=== PATIENT | male | born 1955 | race Caucasian/White ===

== ENCOUNTER → 2019-03-02 17:45 | Outpatient (CLI) | payer OTHER, SELFPAY ==
[2019-03-02 18:36] LABS: ALB/GLOB Ratio 1.3 RATIO (0.9-2.4); AST(SGOT) 36 U/L (15-37); Alanine Aminotransfer ALT/SGPT 44 U/L (16-61); Albumin, Serum 4.2 g/dL (3.2-5.0); Alkaline Phosphatase 91 U/L (45-117); Anion Gap 3 (5-15); BUN 19 mg/dL (7-18); BUN/Creat Ratio 18.8 RATIO (10-20); Calcium,Total 8.9 mg/dL (8.5-10.1); Chloride 107 mmol/L (98-107); Cholesterol 147 mg/dL (200); Creatinine, Serum 1.01 mg/dL (0.70-1.30); EST Glomerular Filtration Rate 79 mL/min (>60); Est Glom Filt Rate - Afr Amer 96 mL/min (>60); Globulin 3.3 g/dL (2.2-4.2); Glucose 99 mg/dL (74-106); High Density Lipoprotein 31 mg/dL; PSA,Total - Annual Screen 2.57 ng/mL (0.00-4.00); Potassium 4.1 mmol/L (3.5-5.1); Protein, Total 7.5 g/dL (6.4-8.2); Sodium Level 140 mmol/L (136-145); Thyroid Stim Hormone (TSH) 3.54 uIU/mL (0.358-3.74); Triglycerides 139 mg/dL; Very Low Density Lipoprotein 28 mg/dL (5-40)
== END ==
PROVIDERS: Family Provider Family Medicine; PCP Family Medicine; Referring Provider Family Medicine; Visit Provider Family Medicine
DX: Z00.00 Encounter for general adult medical examination without abnormal findings (principal); Z12.5 Encounter for screening for malignant neoplasm of prostate
CPT/HCPCS: 36415; 80053; 80061; 84153; 84443; G0103

== ENCOUNTER → 2020-08-30 07:53 | Outpatient (CLI) | payer OTHER, SELFPAY ==
--- NOTE | 2020-08-30 07:55 | CT_ITS ---
STUDY: CT CHEST WITH CONTRAST REASON FOR EXAM: Male, 65 years old. Solitary pulmonary nodule RADIATION DOSAGE (If Supplied By Facility): CTDIvol = ( 12.84 ) mGy, DLP = ( 358.87 ) mGycm TECHNIQUE: Transaxial imaging was performed following intravenous administration of IV 100mL Isovue-300. Multiplanar coronal and sagittal images were reformatted. Individualized dose optimization techniques were used for this CT. COMPARISON: None. FINDINGS: Chronic interstitial changes in both lung nolasco with nonspecific pleural thickening in both hemithoraces. There is no organized infiltrate or groundglass opacification. There is a noncalcified 1 cm nodule in the right lower lobe on axial image 92. Soft tissue windows show normal-appearing thyroid gland. Scattered subcentimeter axillary, mediastinal, and perihilar lymph nodes. No pleural or pericardial effusions. Normal heart and pericardium. Normal mediastinum. Normal hilar regions. Normal enhanced pulmonary arteries. Normal aorta arch and descending thoracic aorta. There are multi-level degenerative changes of the thoracic spine. Limited cuts through the upper abdomen show a prominent retrocardiac hiatal hernia, simple hepatic cysts and a right renal cyst. CT/Chest WITH Contrast IMPRESSION: There is a noncalcified well-defined smooth bordered 1 cm nodule in the right lower lobe on axial image 92. Since there are no previous studies available for comparison, options for follow-up are as follows: Pet/CT to determine if metabolic activity is present, this would be recommended if patient has a smoking history or other factors to suspect neoplasm. 6 month follow-up for a period of 2 years to assess stability, or if there is a high degree of suspicion, this could be biopsied. Chronic interstitial changes in both lung nolasco without a superimposed process No suspicious adenopathy Retrocardiac hiatal hernia Hepatic and right renal cysts, no specific follow-up needed Electronically Signed: Len Pedersen MD at 9:34 EDT , Service support ,
[2020-08-30 08:26] LABS: CREATININE FINGERSTICK 1.1 mg/dL (0.70-1.30); EGFR FINGERSTICK > 60.0000 mL/min (>60)
== END ==
PROVIDERS: PCP Family Medicine; Referring Provider Family Medicine; Visit Provider Family Medicine
DX: R91.1 Solitary pulmonary nodule (principal)
CPT/HCPCS: 71260; Q9967

== ENCOUNTER → 2020-10-02 07:16 | Outpatient (CLI) | payer OTHER, SELFPAY ==
[2020-09-01 08:19] VITALS: BMI 26.4
--- NOTE | 2020-10-02 07:18 | ECHOD_ITS ---
Reason For Study: CAD/ASHD Procedure This was a 2D Doppler, Color Flow transthoracic echocardiogram. Exam performed in department. Left Ventricle Normal LV size. Left ventricular systolic function is normal. The estimated ejection fraction is 55 %. Stage 1 diastolic dysfunction. No regional wall motion abnormalities noted. Right Ventricle Normal RV size. Normal systolic function. Atria Normal left atrium. Normal right atrium. Mitral Valve Normal mitral valve. Tricuspid Valve Normal tricuspid valve. Mild (1+) tricuspid valve insufficiency. Pulmonary artery systolic pressure is 31 mmHg. Aortic Valve Normal aortic valve. Pulmonic Valve Normal pulmonic valve. Great Vessels Normal aortic root. The pulmonary artery is normal size. Normal inferior vena cava. Pericardium/Pleural No pericardial effusion. MMode/2D Measurements & Calculations LVIDd: 5.1 cm IVSd: 0.97 cm Ao root diam: 3.5 cm LVIDs: 3.2 cm LVPWd: 0.97 cm LA dimension: 3.7 cm RVDd: 4.3 cm FS: 36.3 % LAV(MOD-bp): 41.6 ml LVAd ap4: 31.4 cm2 SV(MOD-sp4): 59.1 ml LAV(MOD-bp) Indexed: 22.3 ml/m2 LVLd ap4: 7.6 cm LAV(MOD-sp2): 41.6 ml EDV(MOD-sp4): 108.3 ml LAV(MOD-sp4): 40.3 ml EDV(sp4-el): 110.6 ml LVAs ap4: 19.7 cm2 LVLs ap4: 6.7 cm ESV(MOD-sp4): 49.1 ml ESV(sp4-el): 49.5 ml EF(MOD-sp4): 54.6 % EF(sp4-el): 55.2 % SV(sp4-el): 61.1 ml LA A4 area: 16.5 cm2 RA A4 area: 19.1 cm2 Time Measurements MV dec time: 0.28 sec Doppler Measurements & Calculations MV E max víctor: 59.6 cm/sec Lat Peak E' Víctor: 8.5 cm/sec Med Peak E' Víctor: 7.7 cm/sec MV A max víctor: 75.9 cm/sec E/E' lat: 7.0 E/E' med: 7.8 MV E/A: 0.79 MV V2 max: 74.0 cm/sec MV P1/2t max víctor: 58.5 cm/sec Ao V2 max: 104.1 cm/sec MV max P.2 mmHg MV P1/2t: 92.8 msec Ao max P.3 mmHg MV V2 mean: 32.4 cm/sec MV mean P.52 mmHg MV dec slope: 184.6 cm/sec2 MV V2 VTI: 26.8 cm MVA(P1/2t): 2.4 cm2 LV V1 max: 95.5 cm/sec PA V2 max: 93.4 cm/sec TR max víctor: 259.8 cm/sec LV V1 max P.6 mmHg TR max P.0 mmHg ECHO/Echo Complete Interpretation Summary Normal LV size. Left ventricular systolic function is normal. The estimated ejection fraction is 55 %. Pulmonary artery systolic pressure is 31 mmHg. Stage 1 diastolic dysfunction. Ordering Physician: Jason Fernandes Referring Physician: Aiden Rojas Performed By: Lucas Martell RCS
--- NOTE | 2020-10-02 14:04 | STRESSREP ---
Stress Test Report X study stress myocardial perfusion test. 65-year-old man with a history of elevated calcium score. Stress protocol: Resting EKG demonstrates sinus bradycardia with a rate of 50 bpm right bundle branch block is noted resting blood pressure is 128/78 mmHg. The patient exercised according to regular Naldo protocol for total duration of 9 minutes and 16 seconds. The maximum heart rate attained was 137 bpm which was 88% of maximum predicted heart rate the maximum workload was 10.5 metabolic equivalents. At rest there were no ST or T wave changes noted to suggest ischemia and at peak exercise upsloping ST changes were noted with did not meet the criteria for ischemia. No clinical angina was noted. The peak blood pressure was 158/70 mmHg. The test was terminated due to target heart rate being achieved. No chest pain was noted. Myocardial perfusion protocol. 10.8 mCi of technetium 99m sestamibi was injected at rest. The patient exercised according to regular Naldo protocol for 9 minutes and at peak exercise 31.5 mCi of technetium 99m sestamibi was injected stress images were obtained stress and rest images were reconstructed and compared in the short axis vertical long horizontal long axis. Gated images were also obtained. Perfusion SPECT analysis: Review of the stress images demonstrate normal uptake of tracer noted in all areas of the myocardium. The resting images similarly demonstrate normal uptake of tracer noted in all areas of the myocardium. No areas of reversibility are noted to suggest ischemia. Gated SPECT analysis: The gated ejection fraction is 52%. Conclusion: Normal exercise myocardial perfusion stress test at a high workload. No clinical angina noted. Preserved ejection fraction.
== END ==
PROVIDERS: PCP Family Medicine; Referring Provider Internal Medicine Cardiovascular Disease; Visit Provider Internal Medicine Cardiovascular Disease
DX: I25.10 Atherosclerotic heart disease of native coronary artery without angina pectoris (principal); E78.5 Hyperlipidemia, unspecified; R93.1 Abnormal findings on diagnostic imaging of heart and coronary circulation
CPT/HCPCS: 78452; 93017; 93306; A9500; A4216

== ENCOUNTER → 2020-10-03 14:29 | Outpatient (CLI) | payer OTHER, SELFPAY ==
[2020-09-01 08:19] VITALS: BMI 26.4
--- NOTE | 2020-10-03 15:00 | PET_ITS ---
EXAMINATION: FDG PET/CT INDICATIONS: A 65-year-old male with history of pulmonary nodularity. COMPARISON EXAMINATION: CT of the chest report dated 08/30/20 TECHNIQUE: Following the intravenous administration of 16.54 mCi of F-18 deoxyglucose via the right wrist, multiplanar image acquisitions of the neck, chest, abdomen and pelvis to level of mid thigh, obtained at one hour post radiopharmaceutical administration contemporaneously interpreted with the current CT of the neck, chest, abdomen and pelvis to level of mid thigh, dated 10/03/[address] of the chest report dated 08/30/20 reveal: SERUM GLUCOSE LEVEL: 82 mg/dl. HEIGHT: 67 inches. WEIGHT: 164 lbs. FINDINGS: 1. There is no quantitative scintigraphic evidence of abnormal increased glucose metabolism within the context of the right lower posterior lung-right lower lobe to correlate with structural changes noted on review of CT of the thorax dated 08/30/20. 2. Normal physiologic distribution of the radiopharmaceutical is apparent in the hepatic and splenic parenchyma, both renal units, bladder and visualized intestinal tract. The visualized portion of the cerebral cortical-subcortical structures demonstrate symmetric and preserved glucose metabolism. Diffuse radiopharmaceutical concentration is noted in all four quadrants of the abdomen and pelvis. Prominent radiopharmaceutical concentration is observed in the left ventricular myocardium commensurate with the [place]. There is an increase in tracer uptake noted in the descending thoracic aorta commensurate with activated leukocytes associated with atherosclerotic plaque formation. Pertinent CT findings are as follows: CHEST: Coronary arterial calcification is observed. There is atherosclerotic calcification defined in the thoracic aorta without evidence of dilatation-aneurysm formation. Bilateral subcentimeter axillary soft tissue densities with fatty hilus are ametabolic. Mediastinal soft tissue is non-glucose avid. A hiatal hernia is defined. A linear density noted in the right lower posterolateral lung field is ametabolic. ABDOMEN AND PELVIS: There is atherosclerotic calcification defined in the abdominal aorta without evidence of dilatation-aneurysm formation. Pelvic arterial calcification is encountered. Bilateral inguinal soft tissue densities with fatty hilus are ametabolic. Oral contrast material is manifest within the visualized intestinal tract. Exophytic cyst formation is defined in the right kidney. SKELETAL: Degenerative changes are noted in the cervical, thoracic and lumbar spine without evidence of increased radiopharmaceutical concentration. PET/PET/CT Tumor Base -Thigh Init IMPRESSION: 1. NEGATIVE EXAMINATION. There is no quantitative scintigraphic evidence of abnormal increased glucose metabolism within the context of the right lower posterior lung-right lower lobe to correlate with structural changes noted on review of CT of the thorax dated 08/30/20. 2. Anatomic stability may be ensured in the nonglucose avid right lower lobe parenchymal density with repeat CT of the thorax in 3-6 months. (Landon, Seminars in Thoracic and Cardiovascular Surgery 14:292, 2002). Electronic Signature Prem Mitchell D.O. Accurate Quantification of SUVs for this report are calculated using the exclusive Doctor Evidence? Technology.??Exclusive [place]. Patent [employer]uquan? Technology ([place].S. Patent No. [id number]). Electronically Signed: Prem Mitchell DO at 9:33 EDT Tel , Service support ,
== END ==
PROVIDERS: PCP Family Medicine; Referring Provider Family Medicine; Visit Provider Family Medicine
DX: R91.1 Solitary pulmonary nodule (principal)
CPT/HCPCS: 78815; A9552

== ENCOUNTER → 2020-10-25 08:16 | Outpatient (CLI) | payer OTHER, SELFPAY ==
[2020-09-01 08:19] VITALS: BMI 26.4
[2020-10-25 09:11] LABS: AST(SGOT) 37 U/L (15-37); Alanine Aminotransfer ALT/SGPT 41 U/L (16-61); Albumin, Serum 4.2 g/dL (3.2-5.0); Alkaline Phosphatase 65 U/L (45-117); Bilirubin, Direct 0.22 mg/dL (0.00-0.30); Cholesterol 107 mg/dL (200); Globulin 3.6 g/dL (2.2-4.2); High Density Lipoprotein 35 mg/dL; Protein, Total 7.8 g/dL (6.4-8.2); Triglycerides 54 mg/dL; Very Low Density Lipoprotein 11 mg/dL (5-40)
== END ==
PROVIDERS: PCP Family Medicine; Referring Provider Internal Medicine Cardiovascular Disease; Visit Provider Internal Medicine Cardiovascular Disease
DX: E78.00 Pure hypercholesterolemia, unspecified (principal)
CPT/HCPCS: 36415; 80061; 80076

== ENCOUNTER 2021-08-31 13:19 | Outpatient (CLI) | payer MEDICARE, OTHER, SELFPAY ==
[2021-08-31 14:35] LABS: AST(SGOT) 80 U/L (15-37); Alanine Aminotransfer ALT/SGPT 148 U/L (16-61); Albumin, Serum 3.9 g/dL (3.2-5.0); Alkaline Phosphatase 103 U/L (45-117); Bilirubin, Direct 0.31 mg/dL (0.00-0.30); Cholesterol 107 mg/dL (200); High Density Lipoprotein 31 mg/dL; Protein, Total 7.9 g/dL (6.4-8.2); Triglycerides 271 mg/dL; Very Low Density Lipoprotein 54 mg/dL (5-40)
== END 2021-08-31 23:59 | disposition home or self-care (01) ==
LOC: LAB 13:22
PROVIDERS: PCP Family Medicine; Referring Provider Internal Medicine Cardiovascular Disease; Visit Provider Internal Medicine Cardiovascular Disease
DX: E78.00 Pure hypercholesterolemia, unspecified (principal); E78.5 Hyperlipidemia, unspecified
CPT/HCPCS: 36415; 80061; 80076

== ENCOUNTER → 2022-01-18 | Outpatient (CLI) | payer MEDICARE, OTHER, SELFPAY ==
--- NOTE | 2022-01-18 08:01 | US_ITS ---
STUDY: ABDOMINAL ULTRASOUND - RIGHT UPPER QUADRANT REASON FOR VISIT: Male, 67 years old . Hepatitis. Elevated liver enzymes. TECHNIQUE: Ultrasound evaluation of the right upper quadrant was performed with real-time and static lovelace-scale imaging. TECHNICAL QUALITY: Adequate. COMPARISON: None. FINDINGS: Liver: The liver measures 14.3 cm. There is normal echogenicity of the liver. The bile ducts are within normal limits. There is hepatic color flow. The direction of portal flow is hepatopetal. There is no demonstrated mass lesion. Gallbladder: Normal distended gallbladder. The gallbladder wall measures 2.2 mm. There is a negative sonographic Valdez''s sign. There is no pericholecystic fluid. There are no gallstones. Common Bile Duct (C.B.D.): The common bile duct measures 4.4 mm. Pancreas: Normal size of the head, body and tail of the pancreas. There is increased echogenicity of the pancreas. There is no demonstrated pancreatic mass or cyst. Right Kidney: Normal size of the right kidney. The right kidney measures 10.6 cm x 5.3 cm x 5.9 cm. Normal renal cortex. The right cortex measures 1.9 cm. There is a 2.4 cm x 2.1 cm x 2.3 cm right renal cyst. There is no right hydronephrosis. US/Abdomen Limited IMPRESSION: 2.4 cm x 2.1 cm x 0.3 cm right renal cyst. Electronically Signed: Alex Telles MD at 14:45 EDT ,
--- NOTE | 2022-01-18 08:03 | AAAS_ITS ---
Reason For Study: SCREENING AAA Aorta Measurements Aorta Doppler Measurements Proximal aorta measures2.21 x 2.23cm. in cross- Peak systolic flow velocities within the proximal sectional axis. aorta measure 45.3 cm/sec. Proximal aorta measures2.24cm. in longitudinal Peak systolic flow velocities within the mid aorta axis. measure 53.7 cm/sec. Mid aorta measures1.79 X 1.81cm. in cross- Peak systolic flow velocities within the distal sectional axis. aorta measure 41.9 cm/sec. Mid aorta measures1.82cm. in longitudinal axis. Distal aorta measures1.59 X 1.65cm. in cross- sectional axis. Distal aorta measures1.65cm. in longitudinal axis. Left Iliac Artery Left iliac artery measures 0.95 X 0.93 cm. in the cross-sectional axis. Left iliac artery measures 0.86 cm. in the longitudinal axis. Peak systolic velocity in the left iliac artery measures 66.7 cm/sec. Right Iliac Artery Right iliac artery measures 0.80 X 0.81 cm. in the cross-sectional axis. Right iliac artery measures 0.92 cm. in the longitudinal axis. Peak systolic velocity in the right iliac artery measures 76.1 cm/sec. Procedure Aorta IVC Iliac vasculature or bypass grafts [id number]. Exam performed in department. VL/AAA Screening Interpretation Summary The dimensions of the intra-abdominal aorta appear normal, without evidence of aneurysmal dilatation. The iliac arteries also appear normal in caliber bilaterally. The i ntra-abdominal aorta and iliac arteries appear patent, demonstrating normal pulsatile arterial flow and normal peak systolic velocities. Ordering Physician: Aiden Rojas Referring Physician: Aiden Rojas Performed By: Jennifer Brownlee, OLENA, RVT
== END | disposition home or self-care (01) ==
LOC: CVS 08:00
PROVIDERS: PCP Family Medicine; Referring Provider Family Medicine; Visit Provider Family Medicine
DX: Z13.6 Encounter for screening for cardiovascular disorders (principal); K75.9 Inflammatory liver disease, unspecified
CPT/HCPCS: 76705; 76706

== ENCOUNTER → 2022-02-14 | Outpatient (CLI) | payer MEDICARE, OTHER, SELFPAY ==
[2022-02-14 11:21] LABS: Erythrocyte Sedimentation Rate 11 mm/hr (0-20)
[2022-02-14 11:23] LABS: Absolute Lymphocyte Count 2.28 X10^3/uL (0.83-4.51); Basophil# 0.04 X10^3/uL; Basophil% 0.5 % (0-1); Eosinophil# 0.43 X10^3/uL; Eosinophils% 5.6 % (0-5); Hematocrit 45.2 % (40-54); Hemoglobin 14.9 g/dL (13.0-16.5); Lymphocyte # 2.28 X10^3/ul (0.83-4.51); Lymphocyte % 29.6 % (19-41); Mean Corpuscular Hgb 30.7 pg (27.0-32.0); Mean Corpuscular Volume 93.2 fL (80-94); Mean Platelet Vol. 10.8 fl (6.2-12.0); Monocyte# 0.94 X10^3/uL; Monocyte% 12.2 % (0-10); NRBC Flagged by Analyzer 0 % (0-5); Neutrophil # 3.99 X10^3/uL (2.7-7.7); Neutrophil % 51.8 % (47-70); Platelet Count 161 K/mm3 (150-450); RBC Distribution Width CV 13.2 % (11.6-14.6); RBC Distribution Width SD 45.1 fl (35.1-43.9); Red Blood Count 4.85 M/mm3 (4.6-6.2); White Blood Count 7.7 K/mm3 (4.4-11.0)
[2022-02-14 11:29] LABS: International Normalized Ratio 1.2; Prothrombin Time (Protime)PT. 14.5 SECONDS (11.7-14.9)
[2022-02-14 11:49] LABS: ALB/GLOB Ratio 0.9 RATIO (0.9-2.4); AST(SGOT) 53 U/L (15-37); Alanine Aminotransfer ALT/SGPT 62 U/L (16-61); Albumin, Serum 3.8 g/dL (3.2-5.0); Alkaline Phosphatase 76 U/L (45-117); Anion Gap 6 (5-15); BUN 22 mg/dL (7-18); BUN/Creat Ratio 23.4 RATIO (10-20); CRP < 2.90 mg/L (0.0-3.0); Calcium,Total 9.2 mg/dL (8.5-10.1); Chloride 107 mmol/L (98-107); Creatinine, Serum 0.94 mg/dL (0.70-1.30); EST Glomerular Filtration Rate 85 mL/min (>60); Est Glom Filt Rate - Afr Amer 103 mL/min (>60); Ferritin 28 ng/mL (26-388); Globulin 4.2 g/dL (2.2-4.2); Glucose 92 mg/dL (74-106); LDH 246 U/L (87-241); Potassium 4.2 mmol/L (3.5-5.1); Sodium Level 140 mmol/L (136-145)
[2022-02-14 12:03] LABS: HIV - WCH Non-Reactive (Nonreactive)
[2022-02-15 16:09] LABS: Anti-Centromere B Ab <0.2 AI (0.0-0.9); Anti-Chromatin <0.2 AI (0.0-0.9); Anti-Jo <0.2 AI (0.0-0.9); Anti-Scleroderma-70 AB <0.2 AI (0.0-0.9); RNP Ab <0.2 AI (0.0-0.9); SJOGREN'S Anti-SS-A test < 0.2 AI (0.0-0.9); SJOGREN'S Anti-SS-B test < 0.2 AI (0.0-0.9); Smith Ab <0.2 AI (0.0-0.9)
[2022-02-15 20:42] LABS: Anti-Mitochondrial AB <20.0 Units (0.0-20.0); Anti-dsDNA Ab 5 IU/mL (0-9)
== END | disposition home or self-care (01) ==
LOC: LAB 10:38
PROVIDERS: PCP Family Medicine; Referring Provider Nurse Practitioner Adult Health; Visit Provider Nurse Practitioner Adult Health
DX: B19.20 Unspecified viral hepatitis C without hepatic coma (principal); R93.1 Abnormal findings on diagnostic imaging of heart and coronary circulation
CPT/HCPCS: 80053; 80074; 82105; 82140; 82164; 82390; 82525; 82728; 83010; 83516; 83615; 85025; 85610; 85652; 86140; 86225; 86235; 86256; 86703; 87522; 87902

== ENCOUNTER → 2022-03-11 | Outpatient (CLI) | payer MEDICARE, OTHER, SELFPAY ==
--- NOTE | 2022-03-11 07:57 | US_ITS ---
STUDY: ABDOMINAL ULTRASOUND - ELASTOGRAPHY REASON FOR VISIT: Male, 67 years old. Hepatitis C. TECHNIQUE: Liver stiffness measurements were obtained on a [employer] RS 85 ultrasound machine using a CA 1-7 probe following the SRU guidelines. 3 measurements were obtained using a 2-D-SWE method. The IQR/M was 12% suggesting a quality data set. TECHNICAL QUALITY: Adequate. COMPARISON: Comparison is made with prior examination 01/18/2022. FINDINGS: Liver: Fatty infiltration of the liver. Median liver stiffness measured 10.8 kPa. US/Elastography Parenchyma/Organ IMPRESSION: Liver stiffness measures 10.8 kPa compatible with F2-F3 (Mild to moderate liver fibrosis) Metavir score. Electronically Signed: Alex Telles MD at 14:08 EDT ,
== END | disposition home or self-care (01) ==
LOC: US 07:56
PROVIDERS: PCP Family Medicine; Referring Provider Nurse Practitioner Adult Health; Visit Provider Nurse Practitioner Adult Health
DX: B19.20 Unspecified viral hepatitis C without hepatic coma (principal)
CPT/HCPCS: 76981

== ENCOUNTER → 2022-06-11 | Outpatient (CLI) | payer MEDICARE, OTHER, SELFPAY ==
[2022-06-11 14:24] LABS: AST(SGOT) 30 U/L (15-37); Alanine Aminotransfer ALT/SGPT 31 U/L (16-61); Albumin, Serum 3.9 g/dL (3.2-5.0); Alkaline Phosphatase 82 U/L (45-117); Bilirubin, Direct 0.28 mg/dL (0.00-0.30); Cholesterol 117 mg/dL (200); Globulin 3.8 g/dL (2.2-4.2); High Density Lipoprotein 38 mg/dL; LDH 223 U/L (87-241); Protein, Total 7.7 g/dL (6.4-8.2); Triglycerides 73 mg/dL; Very Low Density Lipoprotein 15 mg/dL (5-40)
[2022-06-13 22:06] LABS: HCV Quant. RNA PCR HCV Not Detected IU/mL (.)
== END | disposition home or self-care (01) ==
LOC: LAB 12:48
PROVIDERS: PCP Family Medicine; Referring Provider Nurse Practitioner Adult Health; Visit Provider Nurse Practitioner Adult Health
DX: B19.20 Unspecified viral hepatitis C without hepatic coma (principal); E78.00 Pure hypercholesterolemia, unspecified
CPT/HCPCS: 80061; 80076; 83615; 87522

== ENCOUNTER → 2022-11-07 | Outpatient (CLI) | payer MEDICARE, OTHER, SELFPAY ==
--- NOTE | 2022-11-07 10:07 | US_ITS ---
STUDY: ABDOMINAL ULTRASOUND - RIGHT UPPER QUADRANT; ELASTOGRAPHY REASON FOR VISIT: Male, 67 years old. History of hepatitis C. TECHNIQUE: Ultrasound evaluation of the right upper quadrant was performed with real-time and static lovelace-scale imaging. Point quantification shear wave elastography was performed ([employer]). TECHNICAL QUALITY: Adequate. COMPARISON: Comparison is made with prior study dated March 11, 2022 and January 18, 2022. FINDINGS: Liver: The liver measures 15.7 cm. There is normal echogenicity of the liver. The bile ducts are within normal limits. There is hepatic color flow. The direction of portal flow is hepatopetal. There is no demonstrated mass lesion. Median liver stiffness measured 8.9 kPa. Gallbladder: Normal distended gallbladder. The gallbladder wall measures 1.5 mm. There is a negative sonographic Valdez''s sign. There is no pericholecystic fluid. There are no gallstones. Common Bile Duct (C.B.D.): The common bile duct measures 6.5 mm. Pancreas: There is normal echogenicity of the visualized pancreas. There is no demonstrated pancreatic mass or cyst. Right Kidney: Normal size of the right kidney. The right kidney measures 10.2 cm x 4.1 cm x 5 cm. Normal renal cortex. The right cortex measures 1.9 cm. There is a 4.2 cm x 4.2 cm x 4.1 cm cyst in the lateral aspect of the right kidney. There is no right hydronephrosis. US/Abdomen Limited IMPRESSION: 1. Liver stiffness measures 8.9 kPa compatible with F2-F3 (Mild to moderate liver fibrosis) Metavir score. Electronically Signed: Alex Telles MD at 12:16 EDT ,
== END | disposition home or self-care (01) ==
LOC: US 10:06
PROVIDERS: PCP Family Medicine; Referring Provider Nurse Practitioner Adult Health; Visit Provider Nurse Practitioner Adult Health
DX: K76.0 Fatty (change of) liver, not elsewhere classified (principal); Z86.19 Personal history of other infectious and parasitic diseases
CPT/HCPCS: 76705; 76981; Q9957

== ENCOUNTER → 2023-01-31 | Outpatient (CLI) | payer MEDICARE, OTHER, SELFPAY ==
[2023-01-31 10:02] LABS: Vitamin B12 530 pg/mL (211-911)
[2023-01-31 10:15] LABS: ALB/GLOB Ratio 1.1 RATIO (0.9-2.4); AST(SGOT) 28 U/L (15-37); Alanine Aminotransfer ALT/SGPT 28 U/L (16-61); Albumin, Serum 3.8 g/dL (3.2-5.0); Alkaline Phosphatase 76 U/L (45-117); Anion Gap 3 (5-15); BUN 17 mg/dL (7-18); BUN/Creat Ratio 17.3 RATIO (10-20); Calcium,Total 8.9 mg/dL (8.5-10.1); Chloride 110 mmol/L (98-107); Cholesterol 106 mg/dL (200); Creatinine, Serum 0.98 mg/dL (0.70-1.30); EST Glomerular Filtration Rate 81 mL/min (>60); Est Glom Filt Rate - Afr Amer 98 mL/min (>60); Globulin 3.5 g/dL (2.2-4.2); Glucose 101 mg/dL (74-106); High Density Lipoprotein 33 mg/dL; Magnesium 2.1 mg/dL (1.6-2.6); PSA,Total - Annual Screen 2.84 ng/mL (0.00-4.00); Potassium 4.1 mmol/L (3.5-5.1); Protein, Total 7.3 g/dL (6.4-8.2); Sodium Level 139 mmol/L (136-145); Thyroid Stim Hormone (TSH) 2.73 uIU/mL (0.358-3.74); Triglycerides 63 mg/dL; Very Low Density Lipoprotein 13 mg/dL (5-40)
== END | disposition home or self-care (01) ==
LOC: LAB 08:54
PROVIDERS: PCP Family Medicine; Referring Provider Family Medicine; Visit Provider Family Medicine
DX: Z12.5 Encounter for screening for malignant neoplasm of prostate (principal); E78.00 Pure hypercholesterolemia, unspecified; K21.9 Gastro-esophageal reflux disease without esophagitis
CPT/HCPCS: 36415; 80053; 80061; 82607; 83735; 84153; 84443; G0103

== ENCOUNTER → 2023-03-05 | Outpatient (CLI) | payer MEDICARE, OTHER, SELFPAY ==
--- NOTE | 2023-03-05 12:38 | CT_ITS ---
INDICATION: PULMONARY NODULE EXAMINATION: CT CHEST WITH CONTRAST - CT Chest W/ Contrast Injection TECHNIQUE: Helically acquired images were obtained of the chest following IV contrast. A radiation dose optimization technique was used for this scan. IV Contrast dosage and agent: RADIATION DOSAGE (If Supplied By Facility): CTDIvol = ( 14.64 ) mGy, DLP = ( 391.24 ) mGycm COMPARISON: FINDINGS: LUNGS, PLEURA AND LARGE AIRWAYS: Stable right lower lobe 9 mm nodule, image 72 series 4. No pleural effusion or thickening. No pneumothorax. THYROID: No thyroid lesions. HEART AND PERICARDIUM: Heart size is normal. No pericardial effusion. VESSELS: Thoracic aorta is not dilated. No aortic dissection. No obvious central pulmonary embolism although this study was not performed with the pulmonary embolism protocol. MEDIASTINUM AND ALYSHA: No mediastinal or hilar adenopathy. Esophagus is unremarkable. No hiatal hernia. UPPER ABDOMEN: Hiatal hernia. Stable hepatic cystic lesions. Larger 5.5 cm right renal cyst. BONES: No suspicious lytic or blastic abnormality. CT/Chest WITH Contrast IMPRESSION: Stable right lower lobe nodule. No other suspicious findings are noted. Electronically Signed: Lc Rojo DO at 16:32 EDT Reading Location ID and State: [facility] / [place] Tel [phone], Service support ,
[2023-03-05 13:17] LABS: CREATININE FINGERSTICK < 0.9 mg/dL (0.70-1.30); EGFR FINGERSTICK > 60.0000 mL/min (>60)
== END | disposition home or self-care (01) ==
LOC: CT 12:37
PROVIDERS: PCP Family Medicine; Referring Provider Family Medicine; Visit Provider Family Medicine
DX: R91.1 Solitary pulmonary nodule (principal)
CPT/HCPCS: 71260; Q9967

== ENCOUNTER 2023-04-21 09:01 | Day surgery (SDC) | payer MEDICARE, OTHER, SELFPAY ==
[2023-04-21] MEDS: Lactated Ringers 1,000 ML 15 ML IV (09:23)
[2023-04-21 09:24] VITALS: BP 109/86; PULSE 54; RESP 17; TEMP 36.6; O2SAT 93; BMI 27.1
--- NOTE | 2023-04-21 09:48 | PCM.HP.STD ---
HPI - General General Date of Admission: 04/21/23 Date of Service: 04/21/23 Chief Complaint: Screening colonoscopy HPI Narrative JADEN ABDALLA, is a 68 M who presents today for screening colonoscopy. Had a colonoscopy proximately 10 years ago. The colonoscopy was normal. He is not having any abdominal pain. He does not have any chest pain or shortness of breath. Does not have any new weakness. He had no change in bowel or bladder last 6 months. Overall is in fairly good health. [facility] Medical History Alcohol use Back pain Cardiology follow-up encounter Coronary artery calcification Elevated coronary artery calcium score Fatty liver Former smoker Gastric reflux GERD (gastroesophageal reflux disease) Hepatitis Hiatal hernia History of echocardiogram History of hiatal hernia History of stress test History of varicocele Hyperlipidemia Loss of hearing Lung nodule Marijuana use Restless legs Right bundle branch block (RBBB) with left anterior fascicular block Sinus bradycardia Sinus bradycardia Substance abuse Wears glasses Home Medications aspirin 81 mg tablet,delayed release (Adult Low Dose Aspirin) 81 mg PO DAILY 09/01/20 [History Last Taken 04/18/23] ursodiol 250 mg tablet 250 mg PO BID #180 tabs 05/08/22 [Rx Last Taken 04/20/23] multivitamin (Daily Multi-Vitamin tablet) 1 tab PO DAILY 09/20/22 [History Last Taken 04/20/23] rosuvastatin 20 mg tablet 10 mg PO DAILY 09/20/22 [History Last Taken 04/20/23] pantoprazole 40 mg tablet,delayed release 40 mg PO DAILY 03/05/23 [History Last Taken 04/21/23] pramipexole 0.25 mg tablet 0.25 mg PO QHS 03/05/23 [History Last Taken 04/20/23] vitamin E 200 unit capsule 200 unit PO DAILY 04/04/23 [History Last Taken 04/20/23] Allergy/AdvReac Type Severity Reaction Status Date / Time No Known Allergies Allergy Verified 04/21/23 09:23 Family History Mother Cancer esophageal Father Heart disease CHF Surgical History History of epididymectomy Hx of colonoscopy Social History (Updated 03/05/23 @ 08:30 by Analilia Lino) household members: spouse current occupational status: retired Smoking Status: Former smoker quit date: 05/26/95 alcohol intake: never ROS Review of Systems ROS Unobtainable: other Constitutional Constitutional: Denies fatigue, fever(s), poor appetite, weight gain or weight loss ENT HEENT: Denies mouth lesions Cardiovascular Cardiovascular: Denies abdominal bloating, abdominal edema or abdominal pain Respiratory/Chest Respiratory/Chest: Denies change in mental status, change in phlegm color, chest congestion or chest tightness Gastrointestinal Gastrointestinal: Denies belching, bloating, change in bowel habits, change in stool character, chewing difficulty, coffee ground emesis, constipation, cramping, diarrhea, dyspepsia, dysphagia, early satiety, excessive flatus, fecal incontinence, heartburn, hematemesis, hematochezia, hemorrhoids, loose stools, melena, nausea, odynophagia, rectal bleeding, tenesmus, vomiting or weight changes Genitourinary Genitourinary: Denies abdominal discomfort, burning urination or itching Musculoskeletal Musculoskeletal: Reports as per HPI; Denies muscle weakness or myalgias Integumentary Integumentary: Denies jaundice Neurologic Neurologic: Denies lack of coordination or weakness Psychiatric Psychiatric: Denies confusion, depression, memory loss, mood swings, paranoia or suicidal ideation Endocrine Endocrinology: Denies systems reviewed and no addt'l complaints, except as documented Hematologic/Lymphatic Hematologic/Lymphatic: Denies anemia, easy bleeding, easy bruising or lymphadenopathy Allergic/Immunologic Allergic/Immunologic: Denies systems reviewed and no addt'l complaints, except as documented Vital Signs Vital Signs Vital Signs: 04/21/23 09:24 04/21/23 09:24 Temperature 97.8 F Temperature Source Temporal Pulse Rate 54 L Respiratory Rate 17 Respiratory Pattern Normal Blood Pressure 109/86 H Blood Pressure Mean 93 Blood Pressure Source Monitor Blood Pressure Position Semi-Fowlers Blood Pressure Location Left Arm Pulse Ox 93 Oxygen Delivery Method Room Air Weight Weight: 173 lb 11.588 oz Body Mass Index (BMI) 27.1 Physical Exam Const alert General Appearance: cooperative Orientation / Consciousness: oriented to person HEENT hearing grossly normal bilaterally Head and Scalp: normal to inspection Face and Sinus: face symmetric Nose: external nose normal Mouth: oral and palatal mucosa normal Eyes conjunctivae normal General Eye: normal appearance of both eyes Neck full ROM General: normal visual inspection Lymph Lymphatic: no lymphadenopathy noted Chest inspection of chest normal and palpation of chest normal Chest: symmetrical chest wall rise Resp normal respiratory effort Effort and Inspection: able to speak in complete sentences Cardio regular rate GI non-distended Percussion: normal to percussion Rectal Exam: deferred Neuro Speech: speech normal Gait (Neuro): normal gait Assessment & Plan Assessment/Plan (1) Encounter for screening for malignant neoplasm of colon: PLAN: Plan He was explained alternatives, risk, benefits including not withstanding bleeding, infection, sepsis, missed polyps, perforation, need for emergent surgery and . He will have an ASA of 3.
--- NOTE | 2023-04-21 10:38 | OP.CCLET_ITS ---
04/21/2023 Aiden Rojas Re : Colonoscopy procedure for Chandra Osei Dear Bob This procedure was performed on Friday, April 21, 2023. My impressions and recommendations are as follows: Impressions : - Diverticulosis in the recto-sigmoid colon and in the sigmoid colon. - The examination was otherwise normal on direct and retroflexion views. - No specimens collected. Recommendations : - Discharge patient to home. - Resume previous diet. - Continue present medications. - Repeat colonoscopy in 10 years for screening purposes. My findings are described in the full procedure note, which is enclosed. If I can be of further assistance, please feel free to contact me at . Sincerely, Danny Smith, 04/21/2023 10:37:48 AM This report has been signed electronically.
--- NOTE | 2023-04-21 10:38 | OP.COLON_ITS ---
Patient Name: Chandra Osei Procedure Date: 04/21/2023 10:09 AM Date of : 1955 Age: 68 Procedure: Colonoscopy Indications: Screening for colorectal malignant neoplasm Providers: Danny Smith DO Medicines: Monitored Anesthesia Care Patient Profile: This is a 68 year old male. Refer to note in patient chart for documentation of history and physical. Last Colonoscopy: more than 10 years ago. Complications: No immediate complications. Procedure: Pre-Anesthesia Assessment: - Prior to the procedure, a History and Physical was performed, and patient medications and allergies were reviewed. The patient is competent. The risks and benefits of the procedure and the sedation options and risks were discussed with the patient. All questions were answered and informed consent was obtained. Patient identification and proposed procedure were verified by the physician in the pre-procedure area. Mental Status Examination: alert and oriented. Airway Examination: normal oropharyngeal airway and neck mobility. Respiratory Examination: clear to auscultation. CV Examination: normal. Prophylactic Antibiotics: The patient does not require prophylactic antibiotics. Prior Anticoagulants: The patient has taken no anticoagulant or antiplatelet agents. ASA Grade Assessment: II - A patient with mild systemic disease. After reviewing the risks and benefits, the patient was deemed in satisfactory condition to undergo the procedure. The anesthesia plan was to use monitored anesthesia care (MAC). Immediately prior to administration of medications, the patient was re-assessed for adequacy to receive sedatives. The heart rate, respiratory rate, oxygen saturations, blood pressure, adequacy of pulmonary ventilation, and response to care were monitored throughout the procedure. The physical status of the patient was re-assessed after the procedure. After I obtained informed consent, the scope was passed under direct vision. Throughout the procedure, the patient's blood pressure, pulse, and oxygen saturations were monitored continuously. The Colonoscope was introduced through the anus and advanced to the cecum, identified by appendiceal orifice and ileocecal valve. The colonoscopy was performed without difficulty. The patient tolerated the procedure well. The quality of the bowel preparation was adequate. The ileocecal valve, appendiceal orifice, and rectum were photographed. Scope In: 10:22:47 AM Scope Withdrawal Time 0 hours 8 minutes 11 seconds Scope Out: 10:33:51 AM Total Procedure Duration Time 0 hours 11 minutes 4 seconds Findings: The perianal and digital rectal examinations were normal. A few small-mouthed diverticula were found in the recto-sigmoid colon and sigmoid colon. The exam was otherwise without abnormality on direct and retroflexion views. Impression: - Diverticulosis in the recto-sigmoid colon and in the sigmoid colon. - The examination was otherwise normal on direct and retroflexion views. - No specimens collected. Recommendation: - Discharge patient to home. - Resume previous diet. - Continue present medications. - Repeat colonoscopy in 10 years for screening purposes. Procedure Code(s): --- Professional --- G0121, Colorectal cancer screening; colonoscopy on individual not meeting criteria for high risk CPT copyright 2021 [employer]. All rights reserved. The codes documented in this report are preliminary and upon front end java developer review may be revised to meet current compliance requirements. Danny Smith DO 04/21/2023 10:37:48 AM This report has been signed electronically. Number of Addenda: 0 Note Initiated On: 04/21/2023 10:09 AM
[2023-04-21 10:39] VITALS: BP 109/86; BP 83/67; PULSE 51; RESP 14; TEMP 36.6; O2SAT 93
[2023-04-21 10:45] VITALS: BP 109/86; BP 91/67; PULSE 53; RESP 16; O2SAT 100
[2023-04-21 10:50] VITALS: BP 109/86; BP 90/68; PULSE 55; RESP 16; O2SAT 98
[2023-04-21 10:57] VITALS: BP 109/86; BP 95/74; PULSE 53; RESP 16; TEMP 37.1; O2SAT 97
[2023-04-21 11:18] VITALS: BP 109/86
== END 2023-04-21 11:29 | disposition home or self-care (01) ==
LOC: EN 09:01 → AC 09:03
PROVIDERS: PCP Family Medicine; Referring Provider Family Medicine; Visit Provider Internal Medicine Gastroenterology
PROC: 0DJD8ZZ Inspection of Lower Intestinal Tract, Via Natural or Artificial Opening Endoscopic (ICD-10-PCS; CPT 45378; principal; 2023-04-21 10:10)
DX: Z12.11 Encounter for screening for malignant neoplasm of colon (principal); K57.30 Diverticulosis of large intestine without perforation or abscess without bleeding; Z87.891 Personal history of nicotine dependence; E78.5 Hyperlipidemia, unspecified; Z79.82 Long term (current) use of aspirin; I25.10 Atherosclerotic heart disease of native coronary artery without angina pectoris
CPT/HCPCS: G0121; J7120; J2405

== ENCOUNTER → 2023-09-29 | Outpatient (CLI) | payer MEDICARE, OTHER, SELFPAY ==
[2023-09-29 08:20] LABS: Absolute Lymphocyte Count 1.67 X10^3/uL (0.83-4.51); Absolute Neutrophil Count 3.7 X10^3/uL (2.0-7.7); Basophil# 0.04 X10^3/uL; Basophil% 0.6 % (0-1); Eosinophil# 0.24 X10^3/uL; Eosinophils% 3.8 % (0-5); Hematocrit 41.6 % (40-54); Hemoglobin 12.7 g/dL (13.0-16.5); Lymphocyte # 1.67 X10^3/ul (0.83-4.51); Lymphocyte % 26.7 % (19-41); Mean Corp Hgb Conc 30.5 g/dL (32-36); Mean Corpuscular Volume 88.5 fL (80-94); Mean Platelet Vol. 10.6 fl (6.2-12.0); Monocyte# 0.56 X10^3/uL; Monocyte% 8.9 % (0-10); NRBC Flagged by Analyzer 0 % (0-5); Neutrophil # 3.74 X10^3/uL (2.7-7.7); Neutrophil % 59.8 % (47-70); Platelet Count 166 K/mm3 (150-450); RBC Distribution Width SD 47.1 fl (35.1-43.9); White Blood Count 6.3 K/mm3 (4.4-11.0)
[2023-09-29 08:51] LABS: AST(SGOT) 29 U/L (15-37); Alanine Aminotransfer ALT/SGPT 26 U/L (16-61); Albumin, Serum 4.1 g/dL (3.2-5.0); Alkaline Phosphatase 68 U/L (45-117); Bilirubin, Direct 0.14 mg/dL (0.00-0.30); Cholesterol 107 mg/dL (200); Globulin 3.2 g/dL (2.2-4.2); High Density Lipoprotein 32 mg/dL; LDH 233 U/L (87-241); Protein, Total 7.3 g/dL (6.4-8.2); Triglycerides 57 mg/dL; Very Low Density Lipoprotein 11 mg/dL (5-40)
[2023-10-01 00:07] LABS: HCV Quant. RNA PCR HCV Not Detected IU/mL (.)
== END | disposition home or self-care (01) ==
LOC: LAB 06:57
PROVIDERS: PCP Family Medicine; Referring Provider Internal Medicine Gastroenterology; Visit Provider Internal Medicine Gastroenterology
DX: K76.0 Fatty (change of) liver, not elsewhere classified (principal); B17.10 Acute hepatitis C without hepatic coma; Z86.19 Personal history of other infectious and parasitic diseases
CPT/HCPCS: 36415; 80061; 80076; 83615; 85025; 87522

== ENCOUNTER → 2023-10-02 | Outpatient (CLI) | payer MEDICARE, OTHER, SELFPAY ==
[2023-10-02 10:21] LABS: Absolute Lymphocyte Count 1.93 X10^3/uL (0.83-4.51); Absolute Neutrophil Count 3.2 X10^3/uL (2.0-7.7); Basophil# 0.06 X10^3/uL; Eosinophil# 0.41 X10^3/uL; Eosinophils% 6.5 % (0-5); Hematocrit 39.9 % (40-54); Hemoglobin 12.5 g/dL (13.0-16.5); Lymphocyte # 1.93 X10^3/ul (0.83-4.51); Lymphocyte % 30.7 % (19-41); Mean Corp Hgb Conc 31.3 g/dL (32-36); Mean Corpuscular Hgb 27.5 pg (27.0-32.0); Mean Corpuscular Volume 87.7 fL (80-94); Mean Platelet Vol. 10.7 fl (6.2-12.0); Monocyte# 0.69 X10^3/uL; NRBC Flagged by Analyzer 0 % (0-5); Neutrophil # 3.18 X10^3/uL (2.7-7.7); Neutrophil % 50.5 % (47-70); Platelet Count 168 K/mm3 (150-450); RBC Distribution Width CV 15.5 % (11.6-14.6); RBC Distribution Width SD 48.7 fl (35.1-43.9); RET-HE 35.3 pg (30-35); Red Blood Count 4.55 M/mm3 (4.6-6.2); White Blood Count 6.3 K/mm3 (4.4-11.0)
[2023-10-02 10:31] LABS: Vitamin B12 605 pg/mL (211-911)
[2023-10-02 10:49] LABS: Erythrocyte Sedimentation Rate 4 mm/hr (0-20)
[2023-10-02 11:17] LABS: CRP < 2.90 mg/L (0.0-3.0); Ferritin 17 ng/mL (26-388); Iron 267 ug/dL (65-175); Iron Binding Capacity,Total 410 ug/dL (250-450); LDH 264 U/L (87-241); Magnesium 2.2 mg/dL (1.6-2.6); Phosphorus 3.2 mg/dL (2.5-4.9); Thyroid Stim Hormone (TSH) 1.77 uIU/mL (0.358-3.74)
[2023-10-03 15:08] LABS: Albumin 3.9 g/dL (2.9-4.4); Alpha-1-Globulins 0.2 g/dL (0.0-0.4); Alpha-2-Globulins 0.7 g/dL (0.4-1.0); Endomysial Antibody IgA Negative (Negative); Haptoglobin 76 mg/dL (32-363); Immunoglobulin A 144 mg/dL (61-437); Immunoglobulin G 1062 mg/dL (603-1613); Immunoglobulin M 65 mg/dL (20-172); PROEL- TOTAL PROTEIN 6.7 g/dL (6.0-8.5); t-Transglutaminase IgA <2 U/mL (0-3)
== END | disposition home or self-care (01) ==
LOC: LAB 09:15
PROVIDERS: PCP Family Medicine; Referring Provider Internal Medicine Gastroenterology; Visit Provider Internal Medicine Gastroenterology
DX: K76.0 Fatty (change of) liver, not elsewhere classified (principal); D64.9 Anemia, unspecified; E78.5 Hyperlipidemia, unspecified
CPT/HCPCS: 36415; 82607; 82728; 82746; 82784; 83010; 83516; 83540; 83550; 83615; 83735; 84100; 84165; 84443; 85025; 85045; 85652; 86140; 86255; 86334

== ENCOUNTER 2023-10-22 08:55 | Day surgery (SDC) | payer MEDICARE, OTHER, SELFPAY ==
[2023-10-22 09:12] VITALS: BP 133/86; PULSE 51; RESP 16; TEMP 36.4; O2SAT 99; BMI 26.1
[2023-10-22] MEDS: Lactated Ringers 1,000 ML 15 ML IV (09:25)
--- NOTE | 2023-10-22 10:15 | PCM.HP.BLA ---
History and Physical Date of Admission: 10/22/23 JADEN ABDALLA, is a 68 M who presents to the office today for follow up. Prior workup: ? US RUQ 8.. hepatic measurement 14.3cm normal echogenicity; increased pancreatic echogenicity. *BGI established 02.14.22 for management of HCV diagnosed 1969 without treatment; recent LFT elevated ? Biochemical 02.14.22 CBC, ESR, haptoglobin, coag, CMP, CRP, AFP, ceruloplasmin, ferritin, copper, AURELIANO comp, ANCA, hepatitis, HIB without pertinent abnormality AST H53-ALT H62-AP 76, LDH H246, LEISA H91, ? FIB4 2.8 HCV quant 10,200,000, genotype 2b? elastography 03.11.22 10.8kPa OV 12 Mavyret continues for 3 more weeks. Triglycerides elevated, reduce carbohydrate intake. ? Biochemical 06.11.22 LDH, LFT, lipid, HCV without pertinent abnormality. OV 4.05.17 statin reduced with Mavyret start, lipids doing well, continue half dose. ? US/elastography 11.07.22 hepatic measurement 15.7cm normal echogenicity, stiffness 8.9kPa ? Colonoscopy, screening 04.21.23 diverticulosis. No specimens OV 12.. without GI symptoms of concern at this time. OV 5..24 pt denies GI symptoms of concern at this time, but does report that he is having increased restless leg. Pt continues with Ursodiol and Pantoprazole. ROS Const Constitutional: No fatigue, fever(s) or weight change ENT ENT: No difficulty swallowing Gastro GI: No abdominal pain, belching, bloating, change in bowel habits, change in stool character, coffee ground emesis, constipation, cramping, diarrhea, heartburn, difficulty swallowing, feeling full early, excessive flatus, incontinent of stools, Vomiting blood/hematemesis, Blood in stool, loose stools, Black,tarry stools, nausea/dyspepsia, pain with swallowing, vomiting or other Musc Musculoskeletal: Positive for joint pain, back pain, muscle cramps, Arthritis, sciatica, restless legs and leg pain at night Skin Skin: No yellowing of the eye or itchy eyes Neuro Neurology: Positive for restless legs Psych Psychiatric: No anxiety and No depression Endo Endocrine: No fatigue or weight change Aller/Imm Allergy/Immunologic: No itchy eyes Jose/Lymp Hematologic/Lymphatic: No easy bleeding or easy bruising Exam Const General: cooperative, healthy appearing and comfortable Nutritional Appearance: average body habitus Orientation: alert, awake and oriented x3 Eyes Sclera: sclerae normal Resp Effort & Inspection: normal respiratory effort Assessment and Plan Assessment and Plan (1) Anemia: Status: Acute Plan: On his last CBC with differential his hemoglobin was down to 12.7 and normally ranges 14-16. We will recheck it to see if it is truly 12.7 and check iron studies along with B12, folic acid, TSH (2) Hx of hepatitis C: Status: Chronic Plan: History of hepatitis C genotype Ia with a PCR RNA 1 million. He is status posttreatment with direct acting antiviral medicine.He is doing very well without any complications from the medicine. We will recheck his PCR in approximately 6 months. (3) NAFLD (nonalcoholic fatty liver disease): Status: Chronic Plan: Discussed liver fibrosis in moderate range, should be reversible He exercises daily Continuie ursodiol 250 mg once a day and vitamin E 800 IU daily Recheck elastography in 6 mos (4) Encounter for screening for malignant neoplasm of colon: Status: Chronic (5) Hepatitis C infection: Status: Acute Plan: He is doing well with Mavyret, has 3 more weeks of the med. Update labs after completing 8 wks treatment. He will resume his full dose of statin then. There is still no signs of hepatitis C virus as his hepatitis C antibody and hepatitis C RNA quantitative load continue to be negative. Orders: Orders CBC W/Diff, Automated Today D64.9 - Anemia, unspecified, E78.5 - Hyperlipidemia, unspecified Ferritin Today D64.9 - Anemia, unspecified, K76.0 - Fatty (change of) liver, not elsewhere classified Haptoglobin Today D64.9 - Anemia, unspecified ANISHA + Protein Elect, Serum Today D64.9 - Anemia, unspecified Iron Binding Capacity,Total Today D64.9 - Anemia, unspecified, K76.0 - Fatty (change of) liver, not elsewhere classified LDH Today D64.9 - Anemia, unspecified Iron Today D64.9 - Anemia, unspecified, K76.0 - Fatty (change of) liver, not elsewhere classified Retic Panel Count Today D64.9 - Anemia, unspecified Celiac Disease Profile Today D64.9 - Anemia, unspecified CRP Today D64.9 - Anemia, unspecified Erythrocyte Sed Rate Today D64.9 - Anemia, unspecified Magnesium Today D64.9 - Anemia, unspecified Phosphorus Today D64.9 - Anemia, unspecified Vitamin B12 Today D64.9 - Anemia, unspecified Thyroid Stim Hormone (TSH) Today D64.9 - Anemia, unspecified, E78.5 - Hyperlipidemia, unspecified Folates, (Folic Acid) Today D64.9 - Anemia, unspecified I have examined the patient and the H&P has been reviewed. There are no clinical changes since date of exam.
[2023-10-22 11:10] VITALS: BP 115/67; BP 133/86; PULSE 48; RESP 16; TEMP 36.1; O2SAT 95
--- NOTE | 2023-10-22 11:14 | OP.CCLET_ITS ---
10/22/2023 Eliane Garcia Md Re : Upper GI endoscopy procedure for Chandra Osei Dear Jose This procedure was performed on Sunday, October 22, 2023. My impressions and recommendations are as follows: Impressions : - Normal esophagus. - Large hiatal hernia. - No gross lesions in the second portion of the duodenum. - No specimens collected. Recommendations : - Discharge patient to home. - Resume previous diet. - Continue present medications. My findings are described in the full procedure note, which is enclosed. If I can be of further assistance, please feel free to contact me at . Sincerely, Danny Smith, 10/22/2023 11:12:33 AM This report has been signed electronically.
--- NOTE | 2023-10-22 11:14 | OP.EGD_ITS ---
Patient Name: Chandra Osei Procedure Date: 10/22/2023 10:47 AM Date of : 1955 Age: 68 Procedure: Upper GI endoscopy Indications: Iron deficiency anemia Providers: Danny Smith DO Referring MD: Eliane Garcia Md Medicines: Monitored Anesthesia Care Patient Profile: This is a 68 year old male. Refer to note in patient chart for documentation of history and physical. Patient has symptoms. Complications: No immediate complications. Procedure: Pre-Anesthesia Assessment: - Prior to the procedure, a History and Physical was performed, and patient medications and allergies were reviewed. The patient is competent. The risks and benefits of the procedure and the sedation options and risks were discussed with the patient. All questions were answered and informed consent was obtained. Patient identification and proposed procedure were verified by the physician in the pre-procedure area. Mental Status Examination: alert and oriented. Airway Examination: normal oropharyngeal airway and neck mobility. Respiratory Examination: clear to auscultation. CV Examination: normal. Prophylactic Antibiotics: The patient does not require prophylactic antibiotics. Prior Anticoagulants: The patient has taken no anticoagulant or antiplatelet agents. ASA Grade Assessment: II - A patient with mild systemic disease. After reviewing the risks and benefits, the patient was deemed in satisfactory condition to undergo the procedure. The anesthesia plan was to use monitored anesthesia care (MAC). Immediately prior to administration of medications, the patient was re-assessed for adequacy to receive sedatives. The heart rate, respiratory rate, oxygen saturations, blood pressure, adequacy of pulmonary ventilation, and response to care were monitored throughout the procedure. The physical status of the patient was re-assessed after the procedure. After obtaining informed consent, the endoscope was passed under direct vision. Throughout the procedure, the patient's blood pressure, pulse, and oxygen saturations were monitored continuously. The Endoscope was introduced through the mouth, and advanced to the second part of duodenum. The upper GI endoscopy was accomplished without difficulty. The patient tolerated the procedure well. Scope In: 10:56:53 AM Scope Out: 11:03:05 AM Total Procedure Duration Time 0 hours 6 minutes 12 seconds Findings: The examined esophagus was normal. A large hiatal hernia was present. The cardia and gastric fundus were normal on retroflexion. No gross lesions were noted in the second portion of the duodenum. Impression: - Normal esophagus. - Large hiatal hernia. - No gross lesions in the second portion of the duodenum. - No specimens collected. Recommendation: - Discharge patient to home. - Resume previous diet. - Continue present medications. Procedure Code(s): --- Professional --- 97586, Esophagogastroduodenoscopy, flexible, transoral; diagnostic, including collection of specimen(s) by brushing or washing, when performed (separate procedure) CPT copyright 2021 [employer]. All rights reserved. The codes documented in this report are preliminary and upon information coder review may be revised to meet current compliance requirements. Danny Smith DO 10/22/2023 11:12:33 AM This report has been signed electronically. Number of Addenda: 0 Note Initiated On: 10/22/2023 10:47 AM
[2023-10-22 11:15] VITALS: BP 113/66; BP 133/86; PULSE 47; RESP 16; O2SAT 96
[2023-10-22 11:20] VITALS: BP 102/69; BP 133/86; PULSE 51; RESP 16; O2SAT 97
[2023-10-22 11:25] VITALS: BP 112/75; BP 133/86; PULSE 44; RESP 16; TEMP 36.2; O2SAT 96
[2023-10-22 11:44] VITALS: BP 133/86
== END 2023-10-22 11:51 | disposition home or self-care (01) ==
LOC: EN 08:56 → AC 08:58
PROVIDERS: PCP Family Medicine; Referring Provider Family Medicine; Visit Provider Internal Medicine Gastroenterology
PROC: 0DJ08ZZ Inspection of Upper Intestinal Tract, Via Natural or Artificial Opening Endoscopic (ICD-10-PCS; CPT 43235; principal; 2023-10-22 09:55)
DX: D50.9 Iron deficiency anemia, unspecified (principal); K44.9 Diaphragmatic hernia without obstruction or gangrene; E78.5 Hyperlipidemia, unspecified; K76.0 Fatty (change of) liver, not elsewhere classified; K21.9 Gastro-esophageal reflux disease without esophagitis; G25.81 Restless legs syndrome; Z79.899 Other long term (current) drug therapy; Z79.82 Long term (current) use of aspirin
CPT/HCPCS: 43235; J7120; J2405

== ENCOUNTER → 2023-12-02 | Outpatient (CLI) | payer MEDICARE, OTHER, SELFPAY ==
[2023-12-02 10:14] LABS: Absolute Lymphocyte Count 2.04 X10^3/uL (0.83-4.51); Absolute Neutrophil Count 3.5 X10^3/uL (2.0-7.7); Basophil# 0.05 X10^3/uL; Basophil% 0.7 % (0-1); Eosinophil# 0.38 X10^3/uL; Eosinophils% 5.7 % (0-5); Hematocrit 43.4 % (40-54); Hemoglobin 14.1 g/dL (13.0-16.5); Lymphocyte # 2.04 X10^3/ul (0.83-4.51); Lymphocyte % 30.4 % (19-41); Mean Corp Hgb Conc 32.5 g/dL (32-36); Mean Corpuscular Volume 89.3 fL (80-94); Mean Platelet Vol. 10.3 fl (6.2-12.0); Monocyte% 10.4 % (0-10); NRBC Flagged by Analyzer 0 % (0-5); Neutrophil # 3.53 X10^3/uL (2.7-7.7); Neutrophil % 52.5 % (47-70); Platelet Count 171 K/mm3 (150-450); RBC Distribution Width CV 17.4 % (11.6-14.6); RBC Distribution Width SD 57.3 fl (35.1-43.9); RET-HE 35.2 pg (30-35); Red Blood Count 4.86 M/mm3 (4.6-6.2); Reticulocyte Count 1.72 % (0.5-1.5); White Blood Count 6.7 K/mm3 (4.4-11.0)
[2023-12-02 10:57] LABS: Iron 181 ug/dL (65-175); Iron Binding Capacity,Total 373 ug/dL (250-450); LDH 258 U/L (87-241); PERCENT IRON SATURATION 48.5 % (15.0-55.0)
[2023-12-05 14:10] LABS: ACCA 16 units (0-90); ALCA 55 units (0-60); AMCA 48 units (0-100); Alpha-1-Globulins 0.2 g/dL (0.0-0.4); Alpha-2-Globulins 0.8 g/dL (0.4-1.0); Gamma Globulin 1.1 g/dL (0.4-1.8); Immunoglobulin A 147 mg/dL (61-437); Immunoglobulin G 1135 mg/dL (603-1613); Immunoglobulin M 69 mg/dL (20-172); PROEL- TOTAL PROTEIN 6.9 g/dL (6.0-8.5); gASCA 40 units (0-50)
== END | disposition home or self-care (01) ==
LOC: LAB 09:20
PROVIDERS: PCP Family Medicine; Referring Provider Internal Medicine Gastroenterology; Visit Provider Internal Medicine Gastroenterology
DX: D64.9 Anemia, unspecified (principal)
CPT/HCPCS: 36415; 82784; 83516; 83540; 83550; 83615; 84165; 85025; 85045; 86036; 86334; 86671

== ENCOUNTER → 2023-12-15 | Outpatient (CLI) | payer MEDICARE, OTHER, SELFPAY ==
--- NOTE | 2023-12-15 09:20 | MRI_ITS ---
INDICATION: Duodenitis without bleeding, COMPARE TO ULTRASOUND EXAMINATION: MRI - MR Enterography Abdomen/Pelvis W/ Contrast TECHNIQUE: Multiplanar and multisequence MR images of the abdomen and pelvis were obtained. IV Contrast Dosage and Agent: IV CLARISCAN 15ML COMPARISON: Prior study dated: There is no recent prior study. Chest CT is performed 03/05/2023. Abdominal ultrasound 11/07/2022. FINDINGS: LOWER CHEST: Lung bases are clear. No cardiomegaly or pericardial effusion. LIVER: The liver enhances normally. Hepatic cysts are noted. No suspicious liver lesion.. Hepatic and portal veins enhance normally. GALLBLADDER AND BILIARY TREE: No filling defects in the gallbladder. No gallbladder distension or wall edema. No intra- or extrahepatic biliary ductal dilation. PANCREAS: No focal cystic or solid mass. SPLEEN: Normal size without focal cystic or solid mass. ADRENAL GLANDS: No nodules. KIDNEYS AND URETERS: Normal renal size and position. No hydronephrosis. Simple bilateral renal cysts. No specific follow-up recommended. PERITONEUM: No ascites or free air. No other fluid collection. BOWEL: Prominent hiatal hernia. Adequate distention of the small bowel for evaluation. No bowel wall thickening. No abnormal enhancement. Specifically, unremarkable appearance of the duodenum. Prominent stool throughout the colon. No colonic wall thickening or abnormal enhancement seen. LYMPH NODES: No enlarged mesenteric or retroperitoneal lymph nodes. VESSELS: Aorta is non-dilated. OSSEOUS STRUCTURES: No acute or suspicious osseous abnormalities. MRI/Enterography Abd/Pel IMPRESSION: No suspicious findings of the bowel. Unremarkable appearance of the duodenum. No wall thickening or abnormal enhancement. Prominent hiatal hernia. Electronically Signed: Anibla Taylor MD at 13:45 EDT ,
[2023-12-15 10:03] VITALS: BP 118/83; PULSE 57; RESP 16; O2SAT 96; BMI 25.3
[2023-12-15 10:15] LABS: CREATININE FINGERSTICK < 1.0 mg/dL (0.70-1.30); EGFR FINGERSTICK > 60.0000 mL/min (>60)
[2023-12-15] MEDS: Ondansetron 4 MG/2 ML Vial IV (10:32)
[2023-12-15] MEDS: Glucagon 1 MG/ML Syringe IV (11:18)
[2023-12-15] MEDS: 0.9% Saline Lock 10 ML Syringe IV (11:20)
[2023-12-15 11:46] VITALS: BP 144/85; PULSE 60; RESP 16; O2SAT 93
== END | disposition home or self-care (01) ==
LOC: MRI 09:17
PROVIDERS: PCP Family Medicine; Referring Provider Internal Medicine Gastroenterology; Visit Provider Internal Medicine Gastroenterology
DX: K29.80 Duodenitis without bleeding (principal)
CPT/HCPCS: 74183; 96374; A9575; A4216; J1610; J2405

== ENCOUNTER 2024-01-07 09:30 | Outpatient (RCR) | payer MEDICARE, OTHER, SELFPAY ==
--- NOTE | 2023-12-16 18:55 | HP.PTEVAL ---
Patient's Visit Information Visit Information Visit Information: JADEN ABDALLA is a 68 year old M referred to Physical Therapy by REHAN WARE with a diagnosis of Vertigo. Date of Evaluation: 12/16/23 Physical Therapist: Martin Poe, [id number], OCS, CSCS Visit Plan Frequency: 2x /Week Duration: 4-6 Weeks Plan: 2x/week for 4-6 as needed IE HEP: VOR standing feet together H 60 seconds 6x/day and activitiy modification for symptom management. Please treat with balance ex progression without increasing dizzy symptoms, please get him doing some balance head movement ex next session at home for the weekend as safety allows. Progress adaptation ex when appropriate and symptom free (currently VOR H stand 60 sec 6x/day, also doing BD habituation.) pt wants to go to [place] fishing 12/24 and will need to make considerable improvements to do this Subjective Subjective: Stacy with him. Was in hospital 3 days a week ago.Started with vertigo on a friday morning on a ladder coming down. Got down and it came on again. went to hospital 7 hrs later . Was spinning most of the night. Worse with head movement. ER hydrated him after vomitting all day. Given meclizine, zofran and valium, one catscan and MRI. ADmitted. Stayed 3 days and slowly better able to walk halls with walker. Went home then with a walker and got home last Friday. Has been slowly increasing activity since then. Is a swimmer of laps and has avoided that but could not swim freestyle so did breastroke. 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 Mowed grass a couple days ago with push mower. Tires easily. Currently feels OK but low visual focus, Does not feel normal. Poor confidence. No spinning except for exercises whcih are lying to side over and over 10x and is worse for a couple minutes. Otherwise has to move slwly. Has to be careful in the dark. No falls. retired. Sleeping is good. Objective Objective: Unsteady ambulating into PT unless slow and purposeful. Transfers without UE bed and chair I. Steps require rail but can do landing on heel cervical aROM is hesitant and slow but full as is extension without pain. UE AROM WNL. heel raises and toe raises I. - B hallpike taye, - roll test Oculomotor: no nystagmus with gaze or head shake head turns give symtpoms ec, no nystagmus. - skew eye deviation, - ocular tilt. + R head thrust + DVA unable to read any lines vs DVa at 20/20 normal purusit and saccades. VOR is symptomatic 30 sec 3/10 for 30 seconds. H Balance/Special Test Scores Functional Gait Assessment Score: 21 % Disability: 30.0000 CATSIB Score (Max score 120 seconds): 92 Dizziness Score: 32 Goals Goal 1:: /30 FGA to reduce fall risk Goal Time Frame: 4-6 Weeks Goal 2:: pt feel 90% back to normal with steadiness and dizzyness Goal Time Frame: 4-6 Weeks Goal 3:: I approrpiate management of condition with HEP Goal Time Frame: 4-6 Weeks Goal 4:: DHI score 8 or less. 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 Rehabilitation Potential: Fair Anticipated Interventions Patient/Client Instruction: Educate patient on: Condition and Plan of Care For the Purpose of:: To improve nutrient delivery to tissue, To increase tolerance to activity/condition/position and To improve safety Therapeutic Exercise to Include: Balance training Comment: adaptation, habituation, balance For the Purpose of:: To increase tolerance to activity/condition/position and To improve safety with gait Text: Thank you for the opportunity to evaluate your patient. For Medicare and Medicare HMO plans, please review the plan of care and approve it. It will need to be FAXED BACK to us at [phone] for Medicare purposes. For Medicare only, by signing this I certify the plan of care. Please let me know if there are questions or concerns regarding this plan of care. Physician Signature: Date:
--- NOTE | 2024-01-07 09:52 | HP.PTDCSUM_ITS ---
Discharge Summary D/C summary: It has been my pleasure to treat JADEN ABDALLA referred by Eliane Garcia MD, with the diagnosis of Vertigo for a total of 5 visit(s). Discharge Date: 01/07/24 Please see the following information for a summary of their discharge status. Subjective Subjective: Ready to be done. Tolerated trip to [place] went well. Not 100% better. Not avoiding anything out in [place]. Has not been on a ladder but feels comfortable trying. Was on low ladder and it went fine. Swam in [place] adn got dizzy at first but then it went away. Has not done ex lately but was not getting vertigo with one minute. No f/u with doctor. Overall Improvement % Improvement: 98 Objective Objective/Function: +8 overall FGA moving head without dizzyness today. pt feeling mostly back to normal. Doing well and wants to be done. Goals Goal 1:: 29/30 FGA to reduce fall risk Goal Progress: Goal Met Goal 2:: pt feel 90% back to normal with steadiness and dizzyness Goal Progress: Goal Met Goal 3:: I approrpiate management of condition with HEP Goal Progress: Goal Met Goal 4:: DHI score 8 or less. Goal Progress: Progressing Goal 5:: Comfortable climbing ladder to work on house safely Goal Progress: Progressing Plan Plan: d/c D/C Information d/c sentence: If there are questions or concerns regarding this patient's physical therapy, please feel free to call me at [phone]. Thank you for the referral of this patient. Sincerely, Martin Poe, DPT, OCS, CSCS Balance/Gait/Functional tests Balance/Special Test Scores Functional Gait Assessment Score: 29 % Disability: 3.3400 CATSIB Score (Max score 120 seconds): 92 Dizziness Score: 8 Improvement % Improvement: 98
== END 2024-01-07 09:58 | disposition home or self-care (01) ==
LOC: PT 09:30
PROVIDERS: PCP Family Medicine; Referring Provider Family Medicine; Visit Provider Family Medicine
DX: R42 Dizziness and giddiness (principal)
CPT/HCPCS: 97110; 97112; 97162; 97530

== ENCOUNTER → 2024-03-11 | Outpatient (CLI) | payer MEDICARE, OTHER, SELFPAY ==
--- NOTE | 2024-03-11 09:23 | US_ITS ---
STUDY: ABDOMINAL ULTRASOUND - RIGHT UPPER QUADRANT; ELASTOGRAPHY REASON FOR VISIT: Male, 69 years old. NAFLD. TECHNIQUE: Ultrasound evaluation of the right upper quadrant was performed with real-time and static lovelace-scale imaging. Point quantification shear wave elastography was performed ([employer]). TECHNICAL QUALITY: Adequate. COMPARISON: Comparison is made with prior study dated November 07, 2022. FINDINGS: Liver: The liver measures 16.3 cm. There is normal echogenicity of the liver. The bile ducts are within normal limits. There is hepatic color flow. The direction of portal flow is hepatopetal. There is no demonstrated mass lesion. Median liver stiffness measured 5.6 kPa. Gallbladder: Normal distended gallbladder. The gallbladder wall measures 2 mm. There is a negative sonographic Valdez''s sign. There is no pericholecystic fluid. There are no gallstones. Common Bile Duct (C.B.D.): The common bile duct measures 4 mm. Pancreas: There is normal echogenicity of the visualized pancreas. There is no demonstrated pancreatic mass or cyst. Right Kidney: Normal size of the right kidney. The right kidney measures 10.4 cm x 5.5 cm x 5.4 cm. Normal renal cortex. The right cortex measures 2.1 cm. There is no demonstrated renal mass or cyst. There is no right hydronephrosis. US/ABD Limited w/ Elastography IMPRESSION: 1. Liver stiffness measures 5.6 kPa compatible with F0-F1 (Normal to mild liver fibrosis) Metavir score. Electronically Signed: Alex Telles MD at 15:32 EDT ,
== END | disposition home or self-care (01) ==
PROVIDERS: PCP Family Medicine; Referring Provider Internal Medicine Gastroenterology; Visit Provider Internal Medicine Gastroenterology
DX: K76.0 Fatty (change of) liver, not elsewhere classified (principal); B19.20 Unspecified viral hepatitis C without hepatic coma
CPT/HCPCS: 36415; 76705; 76981; 87522

== ENCOUNTER → 2025-03-09 | Outpatient (CLI) | payer MEDICARE, OTHER, SELFPAY ==
[2025-03-09 09:52] LABS: Hematocrit 46.2 % (40-54); Hemoglobin 15.5 g/dL (13.0-16.5); Immature Granulocytes Count 0.030 X10^3/uL (0.0-0.0); Mean Corp Hgb Conc 33.5 g/dL (32-36); Mean Corpuscular Volume 95.7 fL (80-94); Mean Platelet Vol. 10.8 fl (6.2-12.0); NRBC Flagged by Analyzer 0 % (0-5); Platelet Count 151 K/mm3 (150-450); RBC Distribution Width CV 12.8 % (11.6-14.6); RBC Distribution Width SD 45.2 fl (35.1-43.9); Red Blood Count 4.83 M/mm3 (4.6-6.2); White Blood Count 7.3 K/mm3 (4.4-11.0)
[2025-03-09 10:46] LABS: AST(SGOT) 39 U/L (<=37); Alanine Aminotransfer ALT/SGPT 27 U/L (<=46); Albumin, Serum 4.5 g/dL (3.4-4.8); Alkaline Phosphatase 66 U/L (40-129); Anion Gap 9 (5-15); BUN 19 mg/dL (4-19); BUN/Creat Ratio 21.4 RATIO (10-20); Calcium,Total 9.7 mg/dL (7.6-11.0); Carbon Dioxide 25.7 mmol/L (21.0-32.0); Chloride 105 mmol/L (98-108); Cholesterol 121 mg/dL (<=200); Globulin 2.9 g/dL (2.2-4.2); Glucose 109 mg/dL (70-99); Low Density Lipoprotein Calc. 74 mg/dL; PSA,Total - Annual Screen 2.67 ng/mL (0.02-4.00); Potassium 4.3 mmol/L (3.3-5.1); Triglycerides 53 mg/dL; Very Low Density Lipoprotein 11 mg/dL (5-40); cholesterol:hdl ratio screen 3.32
[2025-03-11 13:51] LABS: Ferritin 59 ng/mL (37-417)
== END | disposition home or self-care (01) ==
PROVIDERS: PCP Family Medicine; Referring Provider Family Medicine; Visit Provider Family Medicine
DX: D64.9 Anemia, unspecified (principal); Z13.0 Encounter for screening for diseases of the blood and blood-forming organs and certain disorders involving the immune mechanism; R79.89 Other specified abnormal findings of blood chemistry; I70.0 Atherosclerosis of aorta; Z12.5 Encounter for screening for malignant neoplasm of prostate
CPT/HCPCS: 36415; 80053; 80061; 82728; 84153; 85025; G0103

== ENCOUNTER → 2025-04-08 | Outpatient (CLI) | payer MEDICARE, OTHER, SELFPAY ==
[2025-04-08 12:17] LABS: Ferritin 55 ng/mL (37-417); Iron 112 ug/dL (65-175); Iron Binding Capacity,Total 305 ug/dL (250-450); Iron Binding Capacity,Unsat 193 ug/dL (228-428)
== END | disposition home or self-care (01) ==
LOC: LAB 11:05
PROVIDERS: PCP Family Medicine; Referring Provider Internal Medicine Pulmonary Disease; Visit Provider Internal Medicine Pulmonary Disease
DX: G25.81 Restless legs syndrome (principal)
CPT/HCPCS: 36415; 82728; 83540; 83550